=== PATIENT | female | born 1950 | race Caucasian/White ===

== ENCOUNTER → 2016-06-28 | Outpatient (CLI) | payer MEDICARE, OTHER ==
--- NOTE | 2016-06-28 12:14 | RADRPT ---
PROCEDURE: XR Right hip and pelvis. CLINICAL INDICATION: Right hip pain and pelvic pain. TECHNIQUE: 3 views. Frontal pelvis. Frontal and lateral right hip. COMPARISON: 05/19/2015. FINDINGS: There is no fracture or dislocation. The soft tissues are normal. There are degenerative changes of the right hip with joint space narrowing, osteophytes, subarticula r sclerosis, and mild deformity. The left hip is unremarkable. There is no lytic or blastic lesion. There is no radiopaque foreign body. IMPRESSION: 1. Moderate degenerative changes of the right hip. 2. Unremarkable frontal view of the pelvis. RPTAT: QQ .Zeyad Hennessy MD, MD Date Time Electronically viewed and signed by .Zeyad Hennessy MD, MD on 06/28/2016 12:14 .R/
== END | disposition home or self-care (01) ==
LOC: HKI 08:57
PROVIDERS: ATTEND Orthopaedic Surgery
DX: M25.551 Pain in right hip (principal); M16.11 Unilateral primary osteoarthritis, right hip
CPT/HCPCS: 73502; G0463

== ENCOUNTER → 2016-08-27 | Outpatient (CLI) | payer MEDICARE, OTHER ==
[~2016-08-27] MED LIST: ASPI325T32 PO; HYDR-3498 PO; PANT40TA4 PO; SIMV5TAB50 PO; TRAM50TA2 PO
== END | disposition home or self-care (01) ==
LOC: HKI 09:39
PROVIDERS: ATTEND Orthopaedic Surgery
DX: Z01.818 Encounter for other preprocedural examination (principal); M16.11 Unilateral primary osteoarthritis, right hip; E78.00 Pure hypercholesterolemia, unspecified; Z88.0 Allergy status to penicillin
CPT/HCPCS: G0463

== ENCOUNTER 2016-09-02 05:35 | Inpatient (IN) | payer MEDICARE, OTHER ==
[2016-09-01 09:42] VITALS: BMI 29.7
[2016-09-02] VITALS (36 sets, daily range): BP systolic 81–124; BP diastolic 43–97; PULSE 52–77; RESP 12–21; Ht 152.4 cm; Wt 70.5 kg
[~2016-09-02] VITALS: Ht 152.4 cm; Wt 70.5 kg
[2016-09-02] MEDS ORDERED: PREGABALIN 300 MG PO X1 PO ONE (06:00)
[2016-09-02] MEDS ORDERED: TRANEXAMIC ACID 700 MG in SOD CHLORIDE 0.9% 100 ML IVPB ONE (06:00)
[2016-09-02] MEDS ORDERED: SOD CHLORIDE 0.9% IV ONE (06:00)
[2016-09-02] MEDS ORDERED: CELECOXIB 400 MG PO X1 DOSE PO ONE (06:00)
[2016-09-02] MEDS ORDERED: BUPIVACAINE LIPOSOME/PF 266 MG/20 ML VIAL INFIL ONE (06:00)
[2016-09-02] MEDS ORDERED: ONDANSETRON 4 MG IV X 1 DOSE IV ONE (06:00)
[2016-09-02] MEDS ORDERED: TRANEXAMIC ACID IV ONE (06:00)
[2016-09-02] MEDS ORDERED: PAIN COCKTAIL - VANCOMYCIN IRR ONE ×7 (06:00)
[2016-09-02] MEDS ORDERED: VANCOMYCIN 1 GM/NS 250 ML X1 BEFORE INCISION IVPB ONE (06:00)
[2016-09-02] MEDS ORDERED: traMADOL 50 MG TAB X 1 DOSE PO ONE (06:00)
[2016-09-02] MEDS: LACTATED RINGER'S 1,000 ML IV SCH ×5 (06:00→20:23)
[2016-09-02] MEDS ORDERED: oxyCODONE (CR) 10 MG TAB [oxyCONTIN] X1 DOSE PO ONE (06:00)
[2016-09-02] MEDS ORDERED: BACITRACIN 50000 UNITS INJ ONE (06:35)
[2016-09-02] MEDS ORDERED: SIMV5TAB50 PO (06:37)
[2016-09-02] MEDS ORDERED: VANCOMYCIN 1 GM INJ ONE (06:45)
[2016-09-02] MEDS ORDERED: POLYMYXIN B 500000 UNIT INJ ONE (06:45)
[2016-09-02] MEDS ORDERED: SODIUM CL BACTERIOSTATIC 30 ML INJ ONE (06:45)
[2016-09-02] MEDS ORDERED: HEPARIN 1000 UNITS/ML 10 ML INJ ONE (06:53)
[2016-09-02] MEDS ORDERED: CEFAZOLIN 1 GM INJ ONE (06:54)
[2016-09-02] MEDS ORDERED: GLYCOPYRROLATE 0.4 MG INJ ONE (06:54)
[2016-09-02] MEDS ORDERED: PROPOFOL 20 ML ONE (06:54)
[2016-09-02] MEDS ORDERED: NEOSTIGMINE 3 MG/3 ML SYRINGE ONE (06:54)
[2016-09-02] MEDS ORDERED: ROCURONIUM 50 MG INJ ONE ×2 (06:54→07:00)
[2016-09-02] MEDS ORDERED: DEXAMETHASONE 4 MG/ML 1 ML INJ ONE (06:55)
[2016-09-02] MEDS ORDERED: ONDANSETRON 4 MG INJ ONE (06:55)
[2016-09-02] MEDS ORDERED: PROPOFOL 100 ML ONE (06:55)
[2016-09-02] MEDS ORDERED: MIDAZOLAM 1 MG/ML 2 ML INJ ONE (06:55)
[2016-09-02] MEDS ORDERED: FENTAnyl 50 MCG/ML VIAL ONE (06:55)
[2016-09-02] MEDS ORDERED: ETOMIDATE 20 MG INJ ONE (06:55)
--- NOTE | 2016-09-02 06:55 | HPN ---
Date/Time of Note Date/Time of Note DATE: 09/02/16 TIME: 06:54 Interval H&P Admission Note Pt. seen H&P reviewed: No system changes No change from H&P on 08/29/16 by Darien Rodas ERIK N. MD Sep 02, 2016 06:54
[2016-09-02] MEDS ORDERED: SUGAMMADEX SODIUM 200 MG/2 ML VIAL IV ONE (08:26)
[2016-09-02] MEDS ORDERED: MEPERIDINE 25 MG INJ IV PRN (09:00)
[2016-09-02] MEDS ORDERED: DIPHENHYDRAMINE 50 MG INJ IV PRN (09:00)
[2016-09-02] MEDS ORDERED: LABETALOL HCL 20MG INJ IV PRN (09:00)
[2016-09-02] MEDS ORDERED: TRIMETHOBENZAMIDE 100 MG/ML VIAL IM PRN (09:00)
[2016-09-02] MEDS ORDERED: ONDANSETRON 4 MG INJ IV PRN ×2 (09:00→09:30)
[2016-09-02] MEDS ORDERED: EPHEDrine SULFATE 50 MG/5 ML SYG IV PRN (09:00)
[2016-09-02] MEDS ORDERED: hydrALAzine 20 MG INJ IV PRN (09:00)
[2016-09-02] MEDS ORDERED: FENTAnyl 50 MCG/ML VIAL IV PRN ×3 (09:00)
[2016-09-02] MEDS ORDERED: MIDAZOLAM 1 MG/ML 2 ML INJ IV PRN (09:00)
[2016-09-02] MEDS ORDERED: OXYCODONE/ACETAMINOPHEN (5/325) TAB PO PRN ×2 (09:00)
[2016-09-02] MEDS ORDERED: HYDROmorphONE (0.2 MG/ML) 10ML SYG IV PRN ×3 (09:00)
--- NOTE | 2016-09-02 09:25 | OPR ---
Date/Time of Note Date/Time of Note DATE: 09/02/16 TIME: 09:21 Operative Report Procedure Description DATE: 09/02/2016 PREOPERATIVE DIAGNOSIS: Right hip osteoarthritis POSTOPERATIVE DIAGNOSIS: Right hip osteoarthritis OPERATION PERFORMED: Right anterior total hip arthroplasty SURGEON: Mary Ellen Murrieta MD MORTICIAN INVESTIGATOR: Micheal Islas PA-C COMPONENTS USED: DePuy size 48 mm [place] Gription cup, 48/32 neutral Ultrex polyethylene liner, size 3 standard Actis stem, 32+5 ceramic head ANESTHESIA: Spinal plus general endotracheal intubation. ANESTHESIOLOGIST: Good Portillo M.D. ESTIMATED BLOOD LOSS: 300 cc INTRAVENOUS FLUIDS: Crystalloid 2 L, 125 cc of autologous Cell Saver blood SPECIMENS: Femoral head. DRAINS: Hemovac 1 COMPLICATIONS: None. DISPOSITION: The patient tolerated the procedure well and was taken to the recovery room in stable condition. INDICATIONS: The patient is a 66-year-old woman who has developed worsening pain in the right hip with radiographic evidence of severe osteoarthritis. She has failed nonsurgical means of treatment to address her pain including activity modifications, pain medications, and ambulatory assist devices. I felt the patient would benefit from a total hip arthroplasty through an anterior approach. The risks, benefits, and alternatives of the procedure were explained in detail to the patient. I explained the risks of the surgery to include, but not be limited to: bleeding and possible need for blood transfusion; infection; pain; stiffness; neurovascular injury with possible numbness, weakness, and/or paralysis anywhere from the hip down to the toes; fracture; instability; dislocation; leg length inequality; wear and/or loosening of the prosthesis and possible need for future revision; blood clots; pulmonary embolism; and anesthetic complications such as heart attack, stroke, GI bleed, pneumonia, and/ or . Ample time was allowed for the patient to ask questions, all of which were addressed and answered. The patient understood the risks involved and wished to proceed. Informed consent was signed prior to the procedure. PROCEDURE: The patient's right hip was initialed with a marking pen in the preoperative area to identify the correct operative site. The patient was brought to the operating room and [facility] where a spinal anesthetic was administered. The patient was then anesthetized and intubated. A Chacon catheter was placed. Both feet were placed into well padded boots which were then placed into the leg holders of the traction booms. A timeout was performed to confirm that the right side was the correct operative site. The patient was given 1 g of vancomycin and 2 g of intravenous Ancef within one hour prior to the procedure. The operative hip was prepped and draped in the usual sterile fashion. A 10 cm oblique incision was made over the anterior aspect of the hip and carried down through subcutaneous tissue and fat with sharp dissection. The tensor fascia paris was incised along the length of the wound. The tensor fascia muscle was retracted laterally and the sartorius medially. The anterior circumflex vessels were identified and tied off with 2-0 silk suture and coagulated with the Tissue Link mapping editor. The rectus femoris was elevated off the anterior capsule and an anterior capsulectomy performed. A femoral neck osteotomy was made and the head removed from the acetabulum. The acetabulum was denuded of cartilage circumferentially, as was the femoral head. Retractors were placed around the acetabulum. The remnants of the labrum and ligamentum teres were excised. I reamed the acetabulum to the medial wall and then went into an anatomic position and increased the reamer size in 2 mm increments until I got a good bite and was down to bleeding subchondral bone. The [place] cup was opened and impacted into the acetabulum and sat flush circumferentially, getting a good bite. C-arm imaging showed it had about 40 to 45 degrees of abduction and 20 degrees of anteversion. The operative leg was carefully lowered to the floor with the leg adducted. The foot was then externally rotated to approximately 110 degrees. A posteromedial release was performed to optimize exposure. The femoral hook was placed underneath the proximal femur and the hydraulic lift was then used to elevate the femur up out of the wound. The araceli cutter osteotome was used to remove the remaining overhanging greater trochanter. The femur was then broached, going up in one size increments until it sat flush with the neck cut and a stable fit was achieved. The trial neck and head were assembled and reduced into the acetabulum. Fluoroscopic imaging showed the components to be in good position and the leg lengths and offsets to be equal. At this point, the trial was dislocated and the trial broach removed. The canal was irrigated and dried. The real stem was opened and impacted into the femur. The trunnion was irrigated and dried, and the real femoral head was impacted onto the trunnion, and reduced into the acetabulum. The soft tissues were infiltrated with a mixture of 150 mg of 0.5% Bupivacaine, 8 mg of Duramorph, 300 mcg of epinephrine, 30 mg of Toradol, 100 mcg of clonidine, 750 mg of cefuroxime and 86 mL of normal saline, followed by an injection of 266 mg of liposomal Bupivacaine. At this point the hip was irrigated with a mixture of betadine/saline and then antibiotic saline with pulsatile lavage. A Hemovac drain was placed in the deep portion of the wound and brought out the anterolateral thigh. There was good hemostasis. The tensor fascia paris was repaired with a running #1 Vicryl. The deep fat layer was irrigated and closed with 2-0 Stratafix and the subcutaneous layer closed with 3 -0 Vicryl and the skin was closed with myra and then sealed with Dermabond. The drain was secured with 3-0 nylon. The sponge and needle counts were correct at the end of the case. The wound was covered with an occlusive dressing. The patient was awakened, extubated, and taken to the recovery room in stable condition. MARY ELLEN MURRIETA MD Sep 02, 2016 09:24
--- NOTE | 2016-09-02 09:26 | PN ---
Date/Time of Note Date/Time of Note DATE: 09/02/16 TIME: 09:25 Assessment/Plan Lines/Catheters IV Catheter Type (from Nrsg): Peripheral IV Assessment/Plan Assessment/Plan Stable in PACU, s/p right anterior KADE -continue Ancef -pain meds as needed -ASA/SCDs -OOB with PT -check AM labs -monitor drain -d/c castillo in AM XR of the right hip is pending at this time Subjective 24 Hr Interval Summary Stable in PACU. Denies pain. Moving all extremities. Exam/Review of Systems Vital Signs Vitals Vital Signs Date Time Temp Pulse Resp B/P Pulse Ox O2 Delivery O2 Flow Rate FiO2 09/02/16 06:35 97.8 53 18 106/55 95 Room Air Intake and Output 09/01/16 09/01/16 09/02/16 15:00 23:00 07:00 Intake Total 0 ml Balance 0 ml Exam Free Text/Dictation Hemovac: minimal Dressing dry Incision clean, dry, and intact without redness or drainage 5/5 Quadriceps, Tibialis Anterior, EHL, Gastroc, Soleus, Peroneals Normal sensation Palpable DT/PT, CR <2 sec No distal edema EMELIA MICHELE PA-C Sep 02, 2016 09:26
[2016-09-02] MEDS ORDERED: NA PHOSPHATE/BIPHOS 133 ML ENEMA PR PRN (09:30)
[2016-09-02] MEDS ORDERED: DIPHENHYDRAMINE 25 MG CAP PO PRN (09:30)
[2016-09-02] MEDS ORDERED: BISACODYL 10 MG SUPP PR PRN (09:30)
[2016-09-02] MEDS ORDERED: MAGNESIUM HYDROXIDE 30ML CUP PO PRN (09:30)
[2016-09-02] MEDS ORDERED: HYDROmorphONE 1 MG/ML SYG IV PRN (09:30)
[2016-09-02] MEDS ORDERED: ASPIRIN (EC) 325 MG TAB PO ONE (09:30)
[2016-09-02] MEDS ORDERED: NACL 0.9% 3 ML SYG IV SCH (09:30)
[2016-09-02] MEDS ORDERED: HYDROCODONE/APAP (5/325) TAB PO PRN (09:30)
[2016-09-02 10:18] LABS: HEMATOCRIT 34.9 % (37.0-47.0); HEMOGLOBIN 12.5 g/dl (12.0-16.0)
[2016-09-02 10:34] LABS: CALCIUM 8.6 mg/dl (8.4-10.2); CREATININE 0.83 mg/dl (0.44-1.00); POTASSIUM 4.1 mmol/L (3.5-5.1)
[2016-09-02] MEDS: CEFAZOLIN 2 GM/50 ML (PMX) 50 ML IVPB SCH ×2 (10:39→20:25)
--- NOTE | 2016-09-02 11:45 | RADRPT ---
PROCEDURE: XR Pelvis CLINICAL INDICATION: Postop TECHNIQUE: An AP radiograph was submitted. COMPARISON: 06/28/2016 FINDINGS: Osseous structures: There is been an interval total right hip arthroplasty and the components appear well seated. The osseous elements otherwise appear intact. Joint spaces: The left hip joint and the sacroiliac joints appear normal. Soft tissues: A drain is been placed about the right hip there is subcutaneous air and superficial s taples have been placed. IMPRESSION: 1. Interval total right hip arthroplasty with the components well-seated. 2. A drain is been placed and there is postop cyst subcutaneous a are with myra placed laterally . Physician Mike Date Time Electronically viewed and signed by Physician Mike on 09/02/2016 11:44 /
--- NOTE | 2016-09-02 11:46 | RADRPT ---
PROCEDURE: RF intraoperative images of right hip CLINICAL INDICATION: Right hip arthroplasty TECHNIQUE: 16 x-ray images were obtained intraoperatively during a right hip arthroplasty procedur e. COMPARISON: 09/01/2016 FINDINGS: 16 x-ray images were obtained intraoperatively for localization during a total right hip replacement . 8.4 minutes of fluoroscopy time was utilized by Dr. Trotter during the procedure. IMPRESSION: Xray images obtained intraoperatively for localization during a total right hip replacement. Physician Mike Date Time Electronically viewed and signed by Physician Mike on 09/02/2016 11:46 RH/
[2016-09-02] MEDS ORDERED: TRANEXAMIC ACID 710 MG in SOD CHLORIDE 0.9% 100 ML IVPB ONE ×2 (12:30→15:30)
[2016-09-02] MEDS: traMADol 50 MG TAB PO SCH ×2 (13:10→17:50)
[2016-09-02] MEDS ORDERED: EXPAREL NOTE (BUPIVICAINE LIPOSOMAL) XX SCH (16:00)
[2016-09-02] MEDS ORDERED: SOD CHLORIDE 0.9% 250 ML IV ONE ×2 (16:30→18:00)
[2016-09-02] MEDS: PANTOPRAZOLE (EC) 40 MG TAB PO SCH (17:56)
[2016-09-02] MEDS: ATORVASTATIN 10 MG TAB PO SCH (21:00)
[2016-09-02] MEDS: DOCUSATE SODIUM 100 MG CAP PO SCH (21:00)
[2016-09-03] VITALS (11 sets, daily range): BP systolic 83–98; BP diastolic 48–58; PULSE 56–63; RESP 18
[2016-09-03] MEDS: CEFAZOLIN 2 GM/50 ML (PMX) 50 ML IVPB SCH (04:25)
[2016-09-03] MEDS: LACTATED RINGER'S 1,000 ML IV SCH ×4 (04:39→17:00)
[2016-09-03 05:50] LABS: HEMATOCRIT 30.7 % (37.0-47.0); HEMOGLOBIN 10.7 g/dl (12.0-16.0)
[2016-09-03] MEDS: PANTOPRAZOLE (EC) 40 MG TAB PO SCH ×2 (05:56→18:09)
[2016-09-03] MEDS: traMADol 50 MG TAB PO SCH ×4 (06:00→20:06)
[2016-09-03 06:36] LABS: ADD UMIC YES; UR ASCORBIC ACID NEGATIVE (NEGATIVE); UR BILIRUBIN (Dip) NEGATIVE (NEGATIVE); UR BLOOD (Dip) NEGATIVE (NEGATIVE); UR CLARITY CLEAR (CLEAR); UR COLOR STRAW (YELLOW); UR GLUCOSE (Dip) NEGATIVE (NEGATIVE); UR KETONES (Dip) NEGATIVE (NEGATIVE); UR LEUKOCYTE ESTERASE (Dip) TRACE Leu/ul (NEGATIVE); UR MUCUS FEW /HPF (NONE SEEN); UR NITRITE (Dip) NEGATIVE (NEGATIVE); UR RBC 0 /HPF (0-5); UR TOTAL PROTEIN (Dip) NEGATIVE (NEGATIVE); UR UROBILINOGEN (Dip) NEGATIVE (NEGATIVE)
[2016-09-03 06:50] LABS: CALCIUM 8.6 mg/dl (8.4-10.2); CREATININE 0.72 mg/dl (0.44-1.00); POTASSIUM 3.9 mmol/L (3.5-5.1)
--- NOTE | 2016-09-03 07:17 | PDOCDIS ---
Discharge Instructions DIAGNOSIS Discharge Diagnosis s/p right anterior KADE CONDITION Patient Condition: Good HOME CARE INSTRUCTIONS: Diet Instructions: RegularSpecial Diet: CLEAR ADAT ACTIVITY: Activity Restrictions: Slowly Increase Activity Rest between Activity Avoid heavy lifting Do not operate Machinery Do not operate Power Tool Avoid Heavy Housework Keep Limb Elevated Bathing Restrictions: Shower FOLLOW UP/APPOINTMENTS Follow-up Plan follow up in the office on 09/13/16 OTHER ORDERS: Other Orders: S/P Anterior KADE Physical Therapy: Three times per week at home x 2 weeks Daily in Rehab/SNF WB STATUS: WBAT Strengthening exercises for both upper and un-operated lower extremities. 1. Gait training with front wheeled walker 2. Wide base gait, no pivot turns. 3. Abductor strengthening. 4. Quadriceps and hamstring strengthening. 5. May switch to cane in contra lateral hand 6 weeks after surgery. 6. Physical Therapy can open case if nursing is not available. 7. Ice Packs while at rest to surgical wound for 20 minutes, 3 times/day. 8. Patient requires mobile SCDs to reduce risk of developing DVT following KADE. Patient will use the mobile SCDs for 30 days postoperatively. Hip Precautions: No posterior hip precautions. Bathing assistance by home health aide twice weekly if Medicare patient. Occupational Therapy: Evaluation for assistive devices and ADL training. Wound Care: Keep incision dry & covered with Tegaderm until first visit with Dr. Trotter Anticoagulation Orders: Enteric Coated Aspirin 325 mg po bid x 6 weeks from date of surgery Follow-up:Call for an appointment with Dr. Trotter in 1 week after discharged from hospital at DME Orders: HIRA, 3-in-1 Commode, Mobile SCDs EMELIA MICHELE PA-C Sep 03, 2016 07:17
[2016-09-03] MEDS ORDERED: PANT40TA4 PO (07:20)
[2016-09-03] MEDS ORDERED: HYDR-3498 PO (07:20)
[2016-09-03] MEDS ORDERED: TRAM50TA2 PO (07:20)
[2016-09-03] MEDS ORDERED: ASPI325T32 PO (07:20)
[2016-09-03] MEDS: ASPIRIN (EC) 325 MG TAB PO SCH ×2 (09:14→20:07)
[2016-09-03] MEDS: DOCUSATE SODIUM 100 MG CAP PO SCH ×2 (09:14→20:07)
--- NOTE | 2016-09-03 09:46 | CONS ---
Date/Time of Note Date/Time of Note DATE: 09/03/16 TIME: 09:44 Assessment/Plan Assessment/Plan Additional Assessment/Plan 1. Doing well post op right hip replacement. 2. Hyperlipidemia, statin continued 3. Low BP, asx, will check orthostatic BP's Consultation Date/Type/Reason Admit Date/Time Sep 02, 2016 at 05:35 Initial Consult Date Detailed Summary Respiratory: pleuritic pain, No cough, No shortness of breath Cardiovascular: no complaints Gastrointestinal: no complaints Musculoskeletal: bone/joint pain (mild right hip pain) Exam/Review of Systems Vital Signs Vitals Vital Signs Date Time Temp Pulse Resp B/P Pulse Ox O2 Delivery O2 Flow Rate FiO2 09/03/16 08:41 97.5 54 18 85/52 98 09/03/16 05:30 Room Air 09/02/16 11:08 2.0 Intake and Output 09/02/16 09/02/16 09/03/16 15:00 23:00 07:00 Intake Total 232.1 ml 1627.1 ml 1675 ml Output Total 730 ml 1140 ml 1610 ml Balance -497.9 ml 487.1 ml 65 ml Exam Neck: No jvd Respiratory: clear to auscultation Cardiovascular: regular rate and rhythm Gastrointestinal: soft Extremities: No edema (and no calf tend) Results Result Diagram: 09/03/165 09/03/16 0445 Results 24 hrs Laboratory Tests Test 09/02/16 10:09 09/03/16 04:45 09/03/16 05:00 Hemoglobin 12.5 10.7 L Hematocrit 34.9 L 30.7 L Sodium Level 138 137 Potassium Level 4.1 3.9 Chloride Level 105 106 Carbon Dioxide Level 27 27 Anion Gap 10 8 Blood Urea Nitrogen 16 10 Creatinine 0.83 0.72 Glucose Level 153 99 # Calcium Level 8.6 8.6 Urine Color STRAW Urine Clarity CLEAR Urine pH 5.0 Urine Specific [place] 1.010 Urine Ketones NEGATIVE Urine Nitrite NEGATIVE Urine Bilirubin NEGATIVE Urine Urobilinogen NEGATIVE Urine Leukocyte Esterase TRACE A Urine Microscopic RBC 0 Urine Microscopic WBC 2 Urine Mucus FEW A Urine Hemoglobin NEGATIVE Urine Glucose NEGATIVE Urine Total Protein NEGATIVE Medications Medications Current Medications Atorvastatin Calcium 10 mg 10 mg DAILY@21 PO ; Start 09/02/16 at 21:00 Lactated Ringer's (Lr) 1,000 ml @ 125 mls/hr Q8H IV Last administered on 04:39; Admin Dose 125 MLS/HR; Start 09/02/16 at 09:18 Tramadol HCl (Ultram) 50 mg Q6 PO Last administered on 09/03/16 09:24; Admin Dose 50 MG; Start 09/02/16 at 12:00; Stop 09/05/16 at 11:59 Acetaminophen/ Hydrocodone Bitart ([place] (5/325)) 1 tab Q4H PRN PO PAIN LEVEL 1 -3; Start 09/02/16 at 09:30 Acetaminophen/ Hydrocodone Bitart ([place] (5/325)) 2 tab Q4H PRN PO PAIN LEVEL 4 -7; Start 09/02/16 at 09:30 Hydromorphone HCl (Dilaudid) 1 mg Q3H PRN IV PAIN LEVEL 8-10; Start 09/02/16 at 09:30 Ondansetron HCl (Zofran Inj) 4 mg Q6H PRN IV NAUSEA AND/OR VOMITING; Start at 09:30 Bisacodyl (Dulcolax Supp) 10 mg Q12H PRN [place] CONSTIPATION; Start 09/02/16 at 09: 30 Magnesium Hydroxide (Milk Of Mag) 30 ml BID PRN PO CONSTIPATION; Start at 09:30 Sodium Biphosphate/ Sodium Phosphate (Fleet Enema) 133 ml DAILY PRN [place] CONSTIPATION; Start 09/02/16 at 09:30 Docusate Sodium (Colace) 100 mg BID PO Last administered on 09/03/16 09:14; Admin Dose 100 MG; Start 09/02/16 at 21:00 Diphenhydramine HCl (Benadryl) 25 mg Q6H PRN PO PRURITUS; Start 09/02/16 at 09: 30 Aspirin (Ecotrin) 325 mg BID PO Last administered on 09/03/16 09:14; Admin Dose 325 MG; Start 09/03/16 at 09:00 Pantoprazole (Protonix Tab) 40 mg BID@,18 PO Last administered on 09/03/16 05:56; Admin Dose 40 MG; Start 09/02/16 at 18:00 CINTHIA CERDA MD Sep 03, 2016 09:45
--- NOTE | 2016-09-03 10:41 | PN ---
Date/Time of Note Date/Time of Note DATE: 09/03/16 TIME: 10:39 Assessment/Plan Lines/Catheters IV Catheter Type (from Nrsg): Peripheral IV Chacon in Place (from Nrsg): Yes Assessment/Plan Assessment/Plan Stable POD #1, s/p right anterior KADE -d/c abx -pain meds as needed -ASA/SCDs -OOB with PT -check AM labs -discharge planning. Will plan to go home upon discharge Subjective 24 Hr Interval Summary No acute overnight events. Denies significant pain. Did not start PT yesterday. VSS, afebrile. Will plan to go home upon discharge Exam/Review of Systems Vital Signs Vitals Vital Signs Date Time Temp Pulse Resp B/P Pulse Ox O2 Delivery O2 Flow Rate FiO2 09/03/16 08:41 97.5 54 18 85/52 98 09/03/16 05:30 Room Air 09/02/16 11:08 2.0 Intake and Output 09/02/16 09/02/16 09/03/16 14:59 22:59 06:59 Intake Total 232.1 ml 1627.1 ml 1675 ml Output Total 730 ml 1140 ml 1610 ml Balance -497.9 ml 487.1 ml 65 ml Exam Free Text/Dictation Hemovac: 180cc Dressing dry Incision clean, dry, and intact without redness or drainage 5/5 Quadriceps, Tibialis Anterior, EHL, Gastroc, Soleus, Peroneals Normal sensation Palpable DT/PT, CR <2 sec No distal edema Results Result Diagram: 09/03/16 0445 09/03/16 0445 EMELIA MICHELE PA-C Sep 03, 2016 10:41
[2016-09-03] MEDS ORDERED: traMADol 50 MG TAB PO SCH (15:00)
[2016-09-03] MEDS: SOD CHLORIDE 0.9% 1,000 ML IV SCH (20:06)
[2016-09-03] MEDS: ATORVASTATIN 10 MG TAB PO SCH (20:07)
[2016-09-04] MEDS: traMADol 50 MG TAB PO SCH ×4 (02:00→20:22)
[2016-09-04 05:06] LABS: HEMATOCRIT 28.2 % (37.0-47.0); HEMOGLOBIN 9.7 g/dl (12.0-16.0)
[2016-09-04 05:35] LABS: CREATININE 0.71 mg/dl (0.44-1.00); POTASSIUM 3.8 mmol/L (3.5-5.1)
[2016-09-04 06:30] VITALS: BP 111/56; PULSE 62; RESP 18
[2016-09-04] MEDS: SOD CHLORIDE 0.9% 1,000 ML IV SCH ×2 (06:36→17:02)
[2016-09-04] MEDS: PANTOPRAZOLE (EC) 40 MG TAB PO SCH ×2 (06:37→17:14)
[2016-09-04 07:00] VITALS: BP 98/50; RESP 18
[2016-09-04] MEDS: ASPIRIN (EC) 325 MG TAB PO SCH ×2 (08:07→20:22)
[2016-09-04] MEDS: DOCUSATE SODIUM 100 MG CAP PO SCH ×2 (08:07→20:22)
--- NOTE | 2016-09-04 10:49 | PN ---
Date/Time of Note Date/Time of Note DATE: 09/04/16 TIME: 10:48 Assessment/Plan Lines/Catheters IV Catheter Type (from Nrsg): Peripheral IV Chacon in Place (from Nrsg): No Assessment/Plan Assessment/Plan POD # 2. Stable. -OOB with PT -Pain meds -ASA/SCDs -Plan for d/c to home tomorrow Subjective 24 Hr Interval Summary Doing fairly well. Walked with PT yesterday. Wants to stay one more day and go home tomorrow. Exam/Review of Systems Vital Signs Vitals Vital Signs Date Time Temp Pulse Resp B/P Pulse Ox O2 Delivery O2 Flow Rate FiO2 09/04/16 07:00 98.7 58 18 98/50 96 09/04/16 06:30 Room Air 09/02/16 11:08 2.0 Intake and Output 09/03/16 09/03/16 09/04/16 15:00 23:00 07:00 Intake Total 875 ml 2470 ml 1420 ml Output Total 1100 ml 800 ml Balance 875 ml 1370 ml 620 ml Exam Free Text/Dictation Dressing dry Incision clean, dry, and intact without redness or drainage Thigh soft 5/5 Quadriceps, Tibialis Anterior, EHL, Gastroc Soleus, Peroneals Normal sensation Palpable DP/PT, CR < 2 Sec No distal edema Results Result Diagram: 09/04/16 0446 09/04/16 0444 MARY ELLEN MURRIETA MD Sep 04, 2016 10:49
--- NOTE | 2016-09-04 11:21 | CONS ---
Date/Time of Note Date/Time of Note DATE: 09/04/16 TIME: 11:19 Assessment/Plan Assessment/Plan Additional Assessment/Plan 1. Stable post op course 2. Hypotension - improved; asymptomatic. No intervention needed 3. HLD - cont home meds Consultation Date/Type/Reason Admit Date/Time Sep 02, 2016 at 05:35 Initial Consult Date 24 HR Interval Summary Free Text/Dictation Feeling anxious about ambulation, asking if she will get back to a normal routine in the future. Walked about 200 ft this morning, denies much pain and denies dizziness/lightheadedness. Exam/Review of Systems Vital Signs Vitals Vital Signs Date Time Temp Pulse Resp B/P Pulse Ox O2 Delivery O2 Flow Rate FiO2 09/04/16 07:00 98.7 58 18 98/50 96 09/04/16 06:30 Room Air 09/02/16 11:08 2.0 Intake and Output 09/03/16 09/03/16 09/04/16 15:00 23:00 07:00 Intake Total 875 ml 2470 ml 1420 ml Output Total 1100 ml 800 ml Balance 875 ml 1370 ml 620 ml Exam Respiratory: clear to auscultation, normal air movement Cardiovascular: nl pulses, regular rate and rhythm Results Result Diagram: 09/04/16 0446 09/04/16 0444 Results 24 hrs Laboratory Tests Test 09/04/16 04:44 09/04/16 04:46 Sodium Level 142 Potassium Level 3.8 Chloride Level 103 Carbon Dioxide Level 28 Anion Gap 15 # Blood Urea Nitrogen 11 Creatinine 0.71 Glucose Level 102 Calcium Level 8.0 L Hemoglobin 9.7 L Hematocrit 28.2 L Medications Medications Current Medications Atorvastatin Calcium (Lipitor) 10 mg DAILY@21 PO Last administered on t 20:07; Admin Dose 10 MG; Start 09/02/16 at 21:00 Acetaminophen/ Hydrocodone Bitart ([place] (5/325)) 1 tab Q4H PRN PO PAIN LEVEL 1 -3; Start 09/02/16 at 09:30 Acetaminophen/ Hydrocodone Bitart ([place] (5/325)) 2 tab Q4H PRN PO PAIN LEVEL 4 -7; Start 09/02/16 at 09:30 Hydromorphone HCl (Dilaudid) 1 mg Q3H PRN IV PAIN LEVEL 8-10; Start 09/02/16 at 09:30 Ondansetron HCl (Zofran Inj) 4 mg Q6H PRN IV NAUSEA AND/OR VOMITING; Start at 09:30 Bisacodyl (Dulcolax Supp) 10 mg Q12H PRN [place] CONSTIPATION; Start 09/02/16 at 09: 30 Magnesium Hydroxide (Milk Of Mag) 30 ml BID PRN PO CONSTIPATION; Start at 09:30 Sodium Biphosphate/ Sodium Phosphate (Fleet Enema) 133 ml DAILY PRN [place] CONSTIPATION; Start 09/02/16 at 09:30 Docusate Sodium (Colace) 100 mg BID PO Last administered on 09/04/16 08:07; Admin Dose 100 MG; Start 09/02/16 at 21:00 Diphenhydramine HCl (Benadryl) 25 mg Q6H PRN PO PRURITUS; Start 09/02/16 at 09: 30 Aspirin (Ecotrin) 325 mg BID PO Last administered on 09/04/16 08:07; Admin Dose 325 MG; Start 09/03/16 at 09:00 Pantoprazole 40 mg 40 mg BID@06,18 PO Last administered on 09/04/16 06:37; Admin Dose 40 MG; Start 09/02/16 at 18:00 Sodium Chloride (NS) 1,000 ml @ 100 mls/hr Q10H IV Last administered on 06:36; Admin Dose 100 MLS/HR; Start 09/03/16 at 20:00 Tramadol HCl (Ultram) 50 mg Q6H PO Last administered on 09/04/16 06:38; Admin Dose 50 MG; Start 09/03/16 at 20:00; Stop 09/05/16 at 11:59 TOMMIE MAHARAJ MD Sep 04, 2016 11:20
[2016-09-04] MEDS: ATORVASTATIN 10 MG TAB PO SCH (20:22)
[2016-09-04 20:47] VITALS: BP 99/52; RESP 20
[2016-09-05 00:01] VITALS: BP 117/59; PULSE 70; RESP 18
[2016-09-05] MEDS: traMADol 50 MG TAB PO SCH ×2 (02:00→08:54)
[2016-09-05] MEDS: SOD CHLORIDE 0.9% 1,000 ML IV SCH (02:00)
[2016-09-05] MEDS: HYDROCODONE/APAP (5/325) TAB PO PRN ×2 (05:25→12:20)
[2016-09-05] MEDS: PANTOPRAZOLE (EC) 40 MG TAB PO SCH (05:43)
[2016-09-05 05:45] LABS: HEMOGLOBIN 10.4 g/dl (12.0-16.0)
[2016-09-05 06:06] LABS: CALCIUM 8.5 mg/dl (8.4-10.2); CREATININE 0.68 mg/dl (0.44-1.00); POTASSIUM 3.8 mmol/L (3.5-5.1)
[2016-09-05 06:53] VITALS: BP 100/51
[2016-09-05 08:16] VITALS: BP 95/54; RESP 18
[2016-09-05] MEDS: ASPIRIN (EC) 325 MG TAB PO SCH (08:54)
[2016-09-05] MEDS: DOCUSATE SODIUM 100 MG CAP PO SCH (08:54)
--- NOTE | 2016-09-05 09:59 | CONS ---
Date/Time of Note Date/Time of Note DATE: 09/05/16 TIME: 09:58 Assessment/Plan Assessment/Plan Additional Assessment/Plan 1. Stable post op course 2. Hypotension - improved; asymptomatic. No intervention needed 3. HLD - cont home meds 4. Stable for discharge from medical standpoint Consultation Date/Type/Reason Admit Date/Time Sep 02, 2016 at 05:35 24 HR Interval Summary Free Text/Dictation less pain, did better with ambulation yesterday. Feeling more confident Exam/Review of Systems Vital Signs Vitals Vital Signs Date Time Temp Pulse Resp B/P Pulse Ox O2 Delivery O2 Flow Rate FiO2 09/05/16 08:16 97.8 60 18 95/54 95 09/05/16 00:01 Room Air 09/02/16 11:08 2.0 Intake and Output 09/04/16 09/04/16 09/05/16 15:00 23:00 07:00 Intake Total 960 ml Balance 960 ml Exam Respiratory: clear to auscultation, normal air movement Cardiovascular: nl pulses, regular rate and rhythm Results Result Diagram: 09/05/16 0455 09/05/16 0455 Results 24 hrs Laboratory Tests Test 09/05/16 04:55 Hemoglobin 10.4 L Hematocrit 30.0 L Sodium Level 141 Potassium Level 3.8 Chloride Level 105 Carbon Dioxide Level 26 Anion Gap 14 Blood Urea Nitrogen 7 Creatinine 0.68 Glucose Level 101 Calcium Level 8.5 Medications Medications Current Medications Atorvastatin Calcium (Lipitor) 10 mg DAILY@21 PO Last administered on 20:22; Admin Dose 10 MG; Start 09/02/16 at 21:00 Acetaminophen/ Hydrocodone Bitart ([place] (5/325)) 1 tab Q4H PRN PO PAIN LEVEL 1 -3 Last administered on 09/05/16 05:25; Admin Dose 1 TAB; Start 09/02/16 at 09: 30 Acetaminophen/ Hydrocodone Bitart ([place] (5/325)) 2 tab Q4H PRN PO PAIN LEVEL 4 -7; Start 09/02/16 at 09:30 Hydromorphone HCl (Dilaudid) 1 mg Q3H PRN IV PAIN LEVEL 8-10; Start 09/02/16 at 09:30 Ondansetron HCl (Zofran Inj) 4 mg Q6H PRN IV NAUSEA AND/OR VOMITING; Start at 09:30 Bisacodyl (Dulcolax Supp) 10 mg Q12H PRN [place] CONSTIPATION; Start 09/02/16 at 09: 30 Magnesium Hydroxide (Milk Of Mag) 30 ml BID PRN PO CONSTIPATION; Start at 09:30 Sodium Biphosphate/ Sodium Phosphate (Fleet Enema) 133 ml DAILY PRN [place] CONSTIPATION; Start 09/02/16 at 09:30 Docusate Sodium (Colace) 100 mg BID PO Last administered on 09/05/16 08:54; Admin Dose 100 MG; Start 09/02/16 at 21:00 Diphenhydramine HCl (Benadryl) 25 mg Q6H PRN PO PRURITUS; Start 09/02/16 at 09: 30 Aspirin (Ecotrin) 325 mg BID PO Last administered on 09/05/16 08:54; Admin Dose 325 MG; Start 09/03/16 at 09:00 Pantoprazole (Protonix Tab) 40 mg BID@06,18 PO Last administered on 09/05/16 05:43; Admin Dose 40 MG; Start 09/02/16 at 18:00 Tramadol HCl (Ultram) 50 mg Q6H PO Last administered on 09/05/16 08:54; Admin Dose 50 MG; Start 09/03/16 at 20:00; Stop 09/05/16 at 11:59 TOMMIE MAHARAJ MD Sep 05, 2016 09:59
--- NOTE | 2016-09-05 10:56 | PN ---
Date/Time of Note Date/Time of Note DATE: 09/05/16 TIME: 10:55 Assessment/Plan Lines/Catheters IV Catheter Type (from Nrsg): Peripheral IV [place] in Place (from Nrsg): No Assessment/Plan Assessment/Plan POD # 3. Stable. -D/C to home -Pain meds -Home PT -ASA/SCDs -F/u with me in 1 week Subjective 24 Hr Interval Summary Comfortable. Ready to go home today. Exam/Review of Systems Vital Signs Vitals Vital Signs Date Time Temp Pulse Resp B/P Pulse Ox O2 Delivery O2 Flow Rate FiO2 09/05/16 08:16 97.8 60 18 95/54 95 09/05/16 00:01 Room Air 09/02/16 11:08 2.0 Intake and Output 09/04/16 09/04/16 09/05/16 15:00 23:00 07:00 Intake Total 960 ml Balance 960 ml Exam Free Text/Dictation Dressing dry Incision clean, dry, and intact without redness or drainage Thigh soft 5/5 Quadriceps, Tibialis Anterior, EHL, Gastroc Soleus, Peroneals Normal sensation Palpable DP/PT, CR < 2 Sec No distal edema Results Result Diagram: 09/05/16 0455 09/05/16 0455 MARY ELLEN MURRIETA MD Sep 05, 2016 10:56
--- NOTE | 2016-09-05 10:59 | DS ---
Date/Time of Note Date/Time of Note DATE: 09/05/16 TIME: 10:56 Discharge Summary Admission/Discharge Info Admit Date/Time Sep 02, 2016 at 05:35 Discharge Date/Time 09/05/2016 Discharge Diagnosis s/p right anterior KADE Patient Condition: Good Procedures Status post right anterior total hip Hospital Course The patient was admitted and taken to the operating room where she underwent a right anterior total hip arthroplasty. There were no complications. She is taken to the recovery room in stable condition. She was given routine perioperative intravenous antibiotics. Her pain was well-controlled with oral pain medications. She was started on enteric-coated aspirin for DVT prophylaxis along with sequential compression devices. The drain was removed on postoperative day 1 and the incision inspected and noted to be clean dry and intact with no redness or drainage. She remained afebrile and hemodynamically stable and neurovascularly intact. By postoperative day 3 she was doing well ambulating independently up-and-down the halls and her pain was well-controlled with oral pain medications. I felt she was ready to be discharged home Home Meds Reported Medications Simvastatin* (Simvastatin*) 5 Mg Tablet, 20 MG PO QHS, #30 TAB 09/02/16 Follow-up Plan Follow-up with Dr Murrieta in 1 week Primary Care Provider Care Physician No Primary Pending Labs Laboratory Tests Test 09/05/16 04:55 Hemoglobin 10.4g/dl (12.0-16.0) Hematocrit 30.0% (37.0-47.0) Sodium Level 141mmol/L (135-144) Potassium Level 3.8mmol/L (3.5-5.1) Chloride Level 105mmol/L (97-110) Carbon Dioxide Level 26mmol/L (21-31) Anion Gap 14 (8-16) Blood Urea Nitrogen 7mg/dl (7-20) Creatinine 0.68mg/dl (0.44-1.00) Glucose Level 101mg/dl (70-220) Calcium Level 8.5mg/dl (8.4-10.2) MARY ELLEN MURRIETA MD Sep 05, 2016 10:59
== END 2016-09-05 13:21 | disposition home or self-care (01) | DRG 470 ==
LOC: REC 05:35 → MS1 10:17
PROVIDERS: ADMIT Orthopaedic Surgery; ATTEND Orthopaedic Surgery
PROC: 0SR904Z Replacement of Right Hip Joint with Ceramic on Polyethylene Synthetic Substitute, Open Approach (ICD-10-PCS; principal; 2016-09-02 07:00)
DX: M16.11 Unilateral primary osteoarthritis, right hip (principal); E78.5 Hyperlipidemia, unspecified; I95.81 Postprocedural hypotension; E78.00 Pure hypercholesterolemia, unspecified
CPT/HCPCS: 72170; 73530; 80048; 81001; 85014; 85018; 86850; 86900; 86901; 86920; 87081; 87086; 88304; 88311; 97110; 97116; 97163; 97167; 97530; C1776; C9290; J0171; J0690; J0735; J1100; J1644; J1885; J2250; J2274; J2405; J2710; J3010; J3370; J7030; J7040; J7120

== ENCOUNTER → 2016-09-13 | Outpatient (CLI) | payer MEDICARE, OTHER ==
--- NOTE | 2016-09-13 11:11 | PN ---
Date/Time of Note Date/Time of Note DATE: 09/13/16 TIME: 11:09 Assessment/Plan VTE Prophylaxis VTE Prophylaxis Intervention: ambulation Assessment/Plan Assessment/Plan ASSESSMENT: 10 days status post right anterior total hip arthroplasty PLAN: The myra were removed today, and Steri-Strips were applied. She is to continue physical therapy with home health. Outpatient physical therapy prescription has been given today. Additionally she is to continue aspirin 325 mg twice daily for DVT prophylaxis. She does take pain medicine as needed. We will see her back in 4 weeks for repeat evaluation. Subjective 24 Hr Interval Summary Free Text/Dictation The patient presents today for her first postoperative evaluation. She is 10 days status post right anterior total hip arthroplasty. She is doing well overall. She had many questions which were answered at length with her today. She denies any fevers or chills. She is taking aspirin twice daily for DVT prophylaxis. Additionally she is working with home health. She presents today for her first postoperative evaluation. Exam/Review of Systems Exam On exam today, she is alert and oriented 4, and in no acute distress. She is ambulating with a front wheel walker. Exam of the incision demonstrates it to be clean, dry, and intact. Myra are in place. There is no erythema, warmth , pus or drainage noted. She has no pain with passive range of motion of the right hip joint. There is no significant soft tissue swelling of the right lower extremity. She is neurovascularly intact distally. IMAGING: X-rays of the right hip are obtained today and reviewed by me. They demonstrate good alignment with no fractures or dislocations identified. EMELIA MICHELE PA-C Sep 13, 2016 11:11
--- NOTE | 2016-09-13 19:17 | RADRPT ---
PROCEDURE: XR Right hip and pelvis. CLINICAL INDICATION: Right hip pain. Pelvic pain. Postop. TECHNIQUE: Two views. Frontal pelvis and frontal right hip. COMPARISON: 09/02/2016. FINDINGS: There is no fracture or dislocation. The soft tissues are normal. There is a right hip total arthroplasty which appears satisfactory. The left hip is grossly normal. There is no lytic or blastic lesion. The upper pelvis is not completely included on the image. IMPRESSION: 1. Satisfactory postoperative appearance of the right hip. 2. Grossly normal appearance of the left hip. RPTAT: QQ .Zeyad Hennessy MD, MD Date Time Electronically viewed and signed by .Zeyad Hennessy MD, on 09/13/2016 19:17 .R/
== END | disposition home or self-care (01) ==
LOC: HKI 09:47
PROVIDERS: ATTEND Orthopaedic Surgery
DX: Z47.1 Aftercare following joint replacement surgery (principal); Z96.641 Presence of right artificial hip joint
CPT/HCPCS: 73502

== ENCOUNTER → 2016-10-11 | Outpatient (CLI) | payer MEDICARE, OTHER ==
--- NOTE | 2016-10-11 15:57 | RADRPT ---
PROCEDURE: XR Right hip and pelvis. CLINICAL INDICATION: Right hip pain. Pelvic pain. Postop. TECHNIQUE: Two views. Frontal pelvis and frontal right hip. COMPARISON: 09/13/2016. FINDINGS: There is no fracture or dislocation. The soft tissues are normal. There is a right hip total arthroplasty which appears satisfactory. The left hip is grossly normal. There is no lytic or blastic lesion. There are degenerative changes of the lower lumbar spine. IMPRESSION: 1. Satisfactory postoperative appearance of the right hip. 2. Grossly normal appearance of the left hip. RPTAT: QQ .Zeyad Hennessy MD, MD Date Time Electronically viewed and signed by .Zeyad Hennessy MD, MD on 10/11/2016 15:56 .R/
== END | disposition home or self-care (01) ==
LOC: HKI 09:51
PROVIDERS: ATTEND Orthopaedic Surgery
DX: Z47.1 Aftercare following joint replacement surgery (principal); M16.11 Unilateral primary osteoarthritis, right hip; Z96.641 Presence of right artificial hip joint
CPT/HCPCS: 73502